=== PATIENT | male | born 1945 | race Caucasian/White ===

== ENCOUNTER → 2018-02-26 | Outpatient (CLI) | payer MEDICARE, OTHER | END | disposition home or self-care (01) | LOC: CVU 14:53 | PROVIDERS: ATTEND Ophthalmology | DX: I35.8 Other nonrheumatic aortic valve disorders (principal); I65.23 Occlusion and stenosis of bilateral carotid arteries; I10 Essential (primary) hypertension; I25.10 Atherosclerotic heart disease of native coronary artery without angina pectoris; I63.9 Cerebral infarction, unspecified; E78.5 Hyperlipidemia, unspecified; R42 Dizziness and giddiness; Z98.49 Cataract extraction status, unspecified eye | CPT/HCPCS: 93306; 93880 ==